=== PATIENT | female | born 1995 | race Caucasian/White ===

== ENCOUNTER 2020-06-29 15:17 | Emergency (ER) | payer BC ==
[~2020-06-29] VITALS: Ht 157.5 cm; Wt 90.7 kg
[2020-06-29 15:58] VITALS: BP 119/74
== END 2020-06-29 16:23 | disposition home or self-care (01) ==
LOC: ER 15:25
DX: S05.8X2A Other injuries of left eye and orbit, initial encounter (principal); F17.210 Nicotine dependence, cigarettes, uncomplicated; X58.XXXA Exposure to other specified factors, initial encounter; Y93.89 Activity, other specified; Y92.89 Other specified places as the place of occurrence of the external cause; Y99.8 Other external cause status